=== PATIENT | male | born 1935 | race Caucasian/White ===

== ENCOUNTER 2016-05-30 09:13 | Emergency (ER) | payer OTHER, BC ==
[~2016-05-30] VITALS: Ht 160 cm; Wt 59.0 kg
[~2016-05-30 09:13] MED LIST: ACETAMINOPHEN325 M1 PO; AZITHROMYCIN 2250 MG PO; CALCIUM ACETAT667 MG PO; CELEXA 20 MG TA20 MG PO; CLONAZEPAM 0.50.5 M1 PO; COSOPT EYE DROPS5 ML; COSOPT OCUMETER10 M1 OPHTHALMIC; KEFLEX500 MG PO; LEXAPRO 10 MG T10 M2 PO; MUCINEX DM TABL1 TA1 PO; NEPHRO-VITE TA0.8 MG; NORVASC 2.5 MG2.5 M1 PO; NORVASC2.5 MG PO; PHOSLO667 MG; VANCOMYCIN100 MG/ML PO
[2016-05-30 09:35] LABS: BASOPHILS 1.2 % (0.0-2.0); EOSINOPHILS 7.8 % (0.0-3.0); HEMATOCRIT 28.2 % (42.0-52.0); HEMOGLOBIN 9.5 gm/dL (14.0-18.0); LYMPHOCYTES 18.7 % (24.0-44.0); MCH 31.2 pg (26.0-34.0); MCHC 33.7 % (28.0-37.0); MCV 92.6 fL (80.0-100.0); MONOCYTES 3.6 % (1.0-8.0); PLATELET COUNT 133 thou/uL (150-400); POLYS 68.7 % (36.0-66.0); RBC 3.04 mil/uL (4.50-6.00); RDW 16.1 % (10.5-14.5); WBC 7.3 thou/uL (4.0-11.0)
[2016-05-30 09:44] LABS: CALCIUM 8.9 mg/dL (8.5-10.1); CREATININE 7.3 mg/dL (0.6-1.3)
[2016-05-30 09:45] LABS: MANUAL DIFF NO
[2016-05-30 09:50] LABS: ALBUMIN 2.7 g/dL (3.4-5.0); DIRECT BILIRUBIN 0.1 mg/dL (<0.1-0.3); TOTAL BILIRUBIN 0.4 mg/dL (<0.1-1.0); TOTAL PROTEIN 6.3 g/dL (6.4-8.2)
[2016-05-30] MEDS ORDERED: ZOFRAN ODT4 MG PO (11:12)
[2016-06-17] MEDS ORDERED: RENO CAPS SOFTGE1 MG PO (07:26)
[2016-06-17] MEDS ORDERED: LEXAPRO 10 MG T10 MG PO (07:28)
[2016-06-17] MEDS ORDERED: NITROGLYCERIN0.4 MG SL (07:29)
[2016-06-17] MEDS ORDERED: TESSALON PERLE100 M1 PO (07:30)
[2016-06-17] MEDS ORDERED: DUONEB 2.5-0.5 M3 ML (07:32)
[2016-06-17] MEDS ORDERED: TAMIFLU75 MG PO (07:42)
[2016-06-17] MEDS ORDERED: LIDOCAINE-PRIL1 EACH TOP (07:45)
[2016-06-22] MEDS ORDERED: VANCOMYCIN100 MG/M1 PO (13:05)
[2016-06-22] MEDS ORDERED: HEPARIN SO5000 UNIT/ SUBQ (13:05)
[2016-06-22] MEDS ORDERED: DUONEB 2.5-0.5 M3 ML INH (13:05)
[2016-06-22] MEDS ORDERED: FLUCONAZOLE 10100 MG PO (13:05)
[2016-06-22] MEDS ORDERED: AUGMENTIN 500-1 EACH PO (13:05)
[2016-06-22] MEDS ORDERED: ASPIRIN EC325 M1 PO (13:05)
== END 2016-05-30 13:20 ==
LOC: ER 09:13
PROVIDERS: Emergency Medicine
DX: R11.2 Nausea with vomiting, unspecified (principal); I12.0 Hypertensive chronic kidney disease with stage 5 chronic kidney disease or end stage renal disease; E11.22 Type 2 diabetes mellitus with diabetic chronic kidney disease; N18.6 End stage renal disease; Z99.2 Dependence on renal dialysis